=== PATIENT | female | born 1950 | race African-American/Black ===

== ENCOUNTER 2016-12-27 16:12 | Emergency (ER) | payer OTHER ==
[~2016-12-27] VITALS: Ht 157.5 cm; Wt 69.4 kg
[2016-12-27] MEDS ORDERED: htn med (16:20)
[2016-12-27 16:50] VITALS: BP 130/78
--- NOTE | 2016-12-27 17:09 | Emergency Room Report ---
History of Present Illness General Chief Complaint: Gastrointestinal Bleed Source: Patient, EMS (Agnes Renteria) Present Illness HPI 66 YO Female presents to the ED C/O gross blood in the stool since this am. pt. denies abdominal pain, reports 4 episodes of loose bowel movements which consist mainly of dark red blood clots. pt. reports hx of colon cancer 2 years ago, and has had regular follow up with normal results including blood work. pt. denies hx of similar symptoms. pt. reports she had several feel of bowel resected 2 years ago. pt. denies N/V/F/C. pt. reports weakness x 1 day. denies diarrhea, reports frequently becoming constipated due to resection of bowel which requires her to eat increased fiber and fruits to remain regular. pt. also report eating hot chili's and watermelon yesterday. denies Pepto Bismol use. Denies CP, Palpitations, LOC, AMS, dizziness, Changes in Vision, Sensation , paresthesias, or a sudden severe headache. (Agnes Renteria) Allergies: Coded Allergies: No Known Allergies (Unverified , 11/15/15) Patient History Past Medical History: see triage record Past Surgical History: none Pertinent Family History: none Last Menstrual Period: na Now: No Immunizations: UTD Reviewed Nursing Documentation: PMH: Agreed, PSxH: Agreed (Agnes Renteria) Nursing Documentation-PMH Past Medical History: No History, Except For Hx Hypertension: Yes Hx Cancer: Yes - colon (Agnes Renteria) Review of Systems All Other Systems: negative except mentioned in HPI (Agnes Renteria) Physical Exam Vital Signs Date Time Temp Pulse Resp B/P Pulse Ox O2 Delivery O2 Flow Rate FiO2 12/27/16 16:11 98.1 90 18 130/78 98 Room Air Sp02 EP Interpretation: reviewed, normal General Appearance: no apparent distress, alert, GCS 15, non-toxic Head: normocephalic, atraumatic Eyes: bilateral eye PERRL, bilateral eye normal inspection ENT: hearing grossly normal, normal pharynx, no angioedema, normal voice Neck: full range of motion, supple/symm/no masses Respiratory: normal inspection, lungs clear, normal breath sounds, speaking full sentences Cardiovascular #1: regular rate, rhythm, no edema Gastrointestinal: normal bowel sounds, non tender, soft, no guarding, no rebound Rectal: deferred, blood streaked stool - moderate dark red jelly-like consitency to stool grossly heme-positive, heme positive stool Genitourinary: normal inspection, no CVA tenderness Musculoskeletal: back normal, gait/station normal, normal range of motion, non- tender Neurologic: alert, oriented x3, responsive, motor strength/tone normal, sensory intact, cerebellar normal, normal gait, speech normal Psychiatric: judgement/insight normal, memory normal, mood/affect normal Skin: normal color, no rash, warm/dry, well hydrated Lymphatic: no adenopathy (Agnes Renteria) Medical Decision Making PA Attestation Dr. Mims is my supervising Physician whom patient management has been discussed with. (Agnes Renteria) Diagnostic Impression: Primary Impression: Gastrointestinal hemorrhage Qualified Codes: K92.2 - Gastrointestinal hemorrhage, unspecified ER Course 66 YO Female presents to the ED C/O gross blood in the stool since this am. pt. denies abdominal pain, reports 4 episodes of loose bowel movements which consist mainly of dark red blood clots. pt. reports hx of colon cancer 2 years ago, and has had regular follow up with normal results including blood work. pt. denies hx of similar symptoms. pt. reports she had several feel of bowel resected 2 years ago. pt. denies N/V/F/C. pt. reports weakness x 1 day. denies diarrhea, reports frequently becoming constipated due to resection of bowel which requires her to eat increased fiber and fruits to remain regular. pt. also report eating hot chili's and watermelon yesterday. denies Pepto Bismol use. Ddx considered but are not limited to Gi Bleed, abdominal mass, constipation , anal fissure, rectal wall tear, hemorrhoid. Vital signs: are WNL, pt. is afebrile H&PE are most consistent with GI Bleed. -Grossly heme-positive stool. ORDERS: -CBC : 3.2 rbc's, 11.2 hgb both decreased. in addition to decreased platelets. -CMP: unremarkable -PT/PTT: WNL -Type and Screen: O positive ED INTERVENTIONS: -Pt. placed in monitored bed. - 1 Liter NS bolus -20mg Pepcid IV - Pt. placed NPO DISPOSITION: pt will be admitted for GI bleed. Dr. Mims facilitated transfer of pt. to [facility] please see his note. Labs Test 12/27/16 14:52 White Blood Count 6.1 K/UL (4.8-10.8) Red Blood Count 3.77 M/UL (4.20-5.40) Hemoglobin 11.2 G/DL (12.0-16.0) Hematocrit 33.6 % (37.0-47.0) Mean Corpuscular Volume 89 FL (80-99) Mean Corpuscular Hemoglobin 29.7 PG (27.0-31.0) Mean Corpuscular Hemoglobin Concent 33.3 G/DL (32.0-36.0) Red Cell Distribution Width 13.2 % (11.6-14.8) Platelet Count 149 K/UL (150-450) Mean Platelet Volume 8.9 FL (6.5-10.1) Neutrophils (%) (Auto) 56.2 % (45.0-75.0) Lymphocytes (%) (Auto) 33.2 % (20.0-45.0) Monocytes (%) (Auto) 8.2 % (1.0-10.0) Eosinophils (%) (Auto) 1.3 % (0.0-3.0) Basophils (%) (Auto) 1.0 % (0.0-2.0) Prothrombin Time 10.1 SEC (9.30-11.50) Prothromb Time International Ratio 1.0 (0.9-1.1) Activated Partial Thromboplast Time 26 SEC (23-33) Sodium Level 143 mEQ/L (135-145) Potassium Level 3.7 mEQ/L (3.4-4.9) Chloride Level 105 mEQ/L (98-107) Carbon Dioxide Level 25 mEQ/L (20-30) Anion Gap 13 (5-15) Blood Urea Nitrogen 16 mg/dL (7-23) Creatinine 0.7 mg/dL (0.5-0.9) Estimat Glomerular Filtration Rate > 60 mL/min (>60) Glucose Level 112 mg/dL (74-106) Calcium Level 9.0 mg/dL (8.6-10.2) Total Bilirubin 0.3 mg/dL (0.0-1.2) Aspartate Amino Transf (AST/SGOT) 22 U/L (5-40) Alanine Aminotransferase (ALT/SGPT) 11 U/L (3-33) Alkaline Phosphatase 46 U/L (35-104) Total Protein 7.4 g/dL (6.6-8.7) Albumin 4.0 g/dL (3.5-5.2) Globulin 3.4 g/dL Albumin/Globulin Ratio 1.1 (1.0-2.7) (Agnes Renteria P.A.) ER Course The patient was discussed with [facility] transfer [facility]. The patient being transferred to [facility] for further evaluation of GI bleeding for continuity of care. The patient is currently stable for transfer . The patient was kept n.p.o. She was started on Dextrose containing IV fluids.Patient was noted to have significant bleeding which would likely require inpatient monitoring and further evaluation by GI. Labs Test 12/27/16 14:52 White Blood Count 6.1 K/UL (4.8-10.8) Red Blood Count 3.77 M/UL (4.20-5.40) Hemoglobin 11.2 G/DL (12.0-16.0) Hematocrit 33.6 % (37.0-47.0) Mean Corpuscular Volume 89 FL (80-99) Mean Corpuscular Hemoglobin 29.7 PG (27.0-31.0) Mean Corpuscular Hemoglobin Concent 33.3 G/DL (32.0-36.0) Red Cell Distribution Width 13.2 % (11.6-14.8) Platelet Count 149 K/UL (150-450) Mean Platelet Volume 8.9 FL (6.5-10.1) Neutrophils (%) (Auto) 56.2 % (45.0-75.0) Lymphocytes (%) (Auto) 33.2 % (20.0-45.0) Monocytes (%) (Auto) 8.2 % (1.0-10.0) Eosinophils (%) (Auto) 1.3 % (0.0-3.0) Basophils (%) (Auto) 1.0 % (0.0-2.0) Prothrombin Time 10.1 SEC (9.30-11.50) Prothromb Time International Ratio 1.0 (0.9-1.1) Activated Partial Thromboplast Time 26 SEC (23-33) Sodium Level 143 mEQ/L (135-145) Potassium Level 3.7 mEQ/L (3.4-4.9) Chloride Level 105 mEQ/L (98-107) Carbon Dioxide Level 25 mEQ/L (20-30) Anion Gap 13 (5-15) Blood Urea Nitrogen 16 mg/dL (7-23) Creatinine 0.7 mg/dL (0.5-0.9) Estimat Glomerular Filtration Rate > 60 mL/min (>60) Glucose Level 112 mg/dL (74-106) Calcium Level 9.0 mg/dL (8.6-10.2) Total Bilirubin 0.3 mg/dL (0.0-1.2) Aspartate Amino Transf (AST/SGOT) 22 U/L (5-40) Alanine Aminotransferase (ALT/SGPT) 11 U/L (3-33) Alkaline Phosphatase 46 U/L (35-104) Total Protein 7.4 g/dL (6.6-8.7) Albumin 4.0 g/dL (3.5-5.2) Globulin 3.4 g/dL Albumin/Globulin Ratio 1.1 (1.0-2.7) (Girish Mims) Last Vital Signs Date Time Temp Pulse Resp B/P Pulse Ox O2 Delivery O2 Flow Rate FiO2 12/27/16 16:50 98.1 18 130/78 98 Room Air 12/27/16 16:11 90 (Agnes Renteria PChinedu) Status: unchanged (Girish Mims) Disposition: XFER SHT-TRM HOSP Condition: Serious Referrals: PAULA MITCHELL (PCP) Agnes Renteria Dec 27, 2016 17:09 Girish Mims Dec 27, 2016 20:39
[2016-12-27 17:15] VITALS: BP 143/84
[2016-12-27 17:18] LABS: EOSINOPHILS % (AUTO) 1.3 % (0.0-3.0); LYMPHOCYTES % (AUTO) 33.2 % (20.0-45.0); MEAN CORPUSCULAR HEMOGLOBIN 29.7 PG (27.0-31.0); MEAN CORPUSCULAR HGB CONC 33.3 G/DL (32.0-36.0); MEAN CORPUSCULAR VOLUME 89 FL (80-99); MEAN PLATELET VOLUME 8.9 FL (6.5-10.1); MONOCYTES % (AUTO) 8.2 % (1.0-10.0); NEUTROPHILS % (AUTO) 56.2 % (45.0-75.0); PLATELET COUNT 149 K/UL (150-450); RED BLOOD COUNT 3.77 M/UL (4.20-5.40); RED CELL DISTRIBUTION WIDTH 13.2 % (11.6-14.8); WHITE BLOOD COUNT 6.1 K/UL (4.8-10.8)
[2016-12-27 17:26] LABS: PROTHROMBIN TIME 10.1 SEC (9.30-11.50)
[2016-12-27 17:44] LABS: ALANINE AMINOTRANSFERASE 11 U/L (3-33); ALBUMIN/GLOBULIN RATIO 1.1 (1.0-2.7); ANION GAP 13 (5-15); ASPARTATE AMINO TRANSFERASE 22 U/L (5-40); CARBON DIOXIDE 25 mEQ/L (20-30); CHLORIDE 105 mEQ/L (98-107); CREATININE 0.7 mg/dL (0.5-0.9); GLOMERULAR FILTRATION RATE > 60 mL/min (>60); HEMOLYSIS 6; POTASSIUM 3.7 mEQ/L (3.4-4.9); SODIUM 143 mEQ/L (135-145); TOTAL PROTEIN 7.4 g/dL (6.6-8.7)
[2016-12-27 18:58] VITALS: BP 146/80
[2016-12-27] MEDS ORDERED: D5 1/2NS w/KCl 20mEq 1,000 ML IV SCH (19:30)
[2016-12-27 20:55] VITALS: BP 149/83
[2016-12-27] MEDS ORDERED: Famotidine 20 MG/ 2ML VIAL IVP ONE (21:45)
[2016-12-27 22:00] VITALS: BP 147/84
[2016-12-27 22:10] VITALS: BP 147/84
== END 2016-12-27 22:10 | disposition short-term general hospital (02) ==
LOC: EDBD 16:12 → EMR 16:20
DX: K92.2 Gastrointestinal hemorrhage, unspecified (principal); I10 Essential (primary) hypertension; Z85.038 Personal history of other malignant neoplasm of large intestine
CPT/HCPCS: 36415; 80053; 85025; 85610; 85730; 86850; 86900; 86901; 96374; 96375; 99285; S0028